=== PATIENT | female | born 1990 | race African-American/Black ===

== ENCOUNTER 2021-10-31 00:22 | Emergency (ER) | payer SELFPAY ==
[2021-10-31] MEDS ORDERED: Sodium Chloride 0.9% 1,000 ML IV ONE (00:34)
[2021-10-31 01:24] LABS: BLOOD UREA NITROGEN,BUN 5 mg/dL (7.0-18.0); CARBON DIOXIDE,CO2 24.1 mmol/L (21.0-32.0); CHLORIDE,CL 105 mmol/L (98-107); GLUCOSE RANDOM 124 mg/dL (74-106); POTASSIUM,K 3.8 mmol/L (3.5-5.1); SODIUM,NA 136 mmol/L (136-145)
[2021-10-31 01:33] LABS: ESTIMATED GFR 125 mL/min (>60)
== END 2021-10-31 01:51 | disposition home or self-care (01) ==
LOC: MW.ED 00:22
DX: R00.2 Palpitations (principal); Z91.040 Latex allergy status
CPT/HCPCS: 36415; 80053; 84443; 84484; 84702; 84703; 85025; 85379; 85610; 85730; 96360; 99285; J7030; 93010; 99284